=== PATIENT | female | born 1970 | race Caucasian/White ===

== ENCOUNTER 2017-06-15 16:31 | Inpatient (IN) | payer SELFPAY ==
[~2017-06-15] VITALS: Ht 172.7 cm; Wt 167.9 kg
[~2017-06-15 16:31] MED LIST: AMOXICILLIN500 M2 PO; AUGMENTIN 875 M1 TAB PO; BIAXIN500 MG PO; CLARITIN10 MG PO; FLONASE ALLERG9.9 ML NAS; LIDEX0.05% T; MEDROL DOSEPAK4 MG PO; MOTRIN800 MG PO; NAPROSYN500 MG PO; NORCO 325 MG-51 TAB PO; PREDNICOT20 MG PO; PREDNISONE10 MG PO; PROVENTIL0.09 MG/AC IH; ROBITUSSIN AC 110 ML PO; TOPAMAX100 M1 PO; ULTRAM50 MG PO
[2017-06-15 16:44] VITALS: BP 168/92
[2017-06-15 17:00] VITALS: BP 164/92
[2017-06-15 17:29] LABS: BASO % 0.5 % (0.0-1.0); EOS % 0.5 % (1.0-4.0); HEMOGLOBIN 12.8 g/dl (12.0-16.0); LYMPH # 1.3 10*3/uL (1.3-4.4); LYMPH % 15.1 % (27.0-41.0); MEAN CELL VOLUME 90.5 fl (81.0-99.0); MEAN PLATELET VOLUME 12.4 fl (9.6-12.3); MONO # 0.8 10*3/uL (0.1-1.0); MONO % 8.9 % (3.0-9.0); NEUT # 6.3 10*3/uL (2.3-7.9); NEUT % 73.2 % (47.0-73.0); PLATELET COUNT AUTOMATED 193 10*3/uL (130-400); RED BLOOD COUNT 4.42 10*6/uL (4.10-5.10); RED CELL DISTRI WIDTH 13.8 % (0-14.5); WHITE BLOOD COUNT 8.5 10*3/uL (4.8-10.8)
[2017-06-15 17:30] VITALS: BP 123/78
[2017-06-15 17:45] LABS: ALBUMIN 2.9 gm/dl (3.1-4.5); ALKALINE PHOSPHATASE 74 U/L (45-117); BUN 11 mg/dl (7-24); CHLORIDE 104 mmol/L (98-107); CREATININE 0.88 mg/dL (0.55-1.02); POTASSIUM 3.8 mmol/L (3.5-5.1); SGOT/AST 24 IU/L (3-35); SGPT/ALT 32 U/L (12-78); SODIUM 139 mmol/L (136-145); TOTAL PROTEIN 7.3 gm/dL (6.4-8.2)
[2017-06-15 17:48] LABS: TROPONIN I < 0.015 ng/ml (<0.045)
[2017-06-15 19:25] VITALS: BP 147/77
[2017-06-15 19:50] VITALS: BP 148/70
[2017-06-15 20:00] VITALS: BP 148/70
[2017-06-16] VITALS: BP 135/61
[2017-06-16 07:37] LABS: BASO % 0.1 % (0.0-1.0); HEMATOCRIT 37.2 % (37.0-47.0); HEMOGLOBIN 11.9 g/dl (12.0-16.0); LYMPH # 1.3 10*3/uL (1.3-4.4); LYMPH % 16.8 % (27.0-41.0); MEAN CELL VOLUME 91.9 fl (81.0-99.0); MEAN CORPUSCULAR HGB 29.4 pg (27.0-31.0); MEAN PLATELET VOLUME 12.5 fl (9.6-12.3); MONO # 0.5 10*3/uL (0.1-1.0); MONO % 6.8 % (3.0-9.0); NEUT # 5.7 10*3/uL (2.3-7.9); NEUT % 74.9 % (47.0-73.0); PLATELET COUNT AUTOMATED 214 10*3/uL (130-400); RED BLOOD COUNT 4.05 10*6/uL (4.10-5.10); WHITE BLOOD COUNT 7.6 10*3/uL (4.8-10.8)
[2017-06-16 08:00] VITALS: BP 139/68
[2017-06-16 08:06] LABS: ALBUMIN 2.8 gm/dl (3.1-4.5); ALKALINE PHOSPHATASE 69 U/L (45-117); BUN 12 mg/dl (7-24); CHLORIDE 104 mmol/L (98-107); FREE T4 0.93 ng/dl (0.76-1.46); PHOSPHOROUS 3.5 mg/dL (2.5-4.9); POTASSIUM 4.1 mmol/L (3.5-5.1); SGOT/AST 20 IU/L (3-35); SGPT/ALT 32 U/L (12-78); SODIUM 138 mmol/L (136-145); TRIGLYCERIDES 87 mg/dl (<150); VLDL CHOLESTEROL 17 mg/dL (6-40)
[2017-06-16 08:11] LABS: CHOLESTEROL 157 mg/dL (<200); HDL CHOLESTEROL 44 mg/dl (40-60); LDL CHOLESTEROL 96 mg/dL (9-159)
[2017-06-16 08:12] LABS: ACT PARTIAL THROMBO TIME 26.7 SECONDS (20.8-31.5)
[2017-06-16 08:52] LABS: VITAMIN D, 25-HYDROXY 12.2 ng/mL (30-100)
[2017-06-16 12:00] VITALS: BP 136/67
[2017-06-16 16:00] VITALS: BP 143/82
[2017-06-16 20:00] VITALS: BP 140/61
[2017-06-17] VITALS (7 sets, daily range): BP systolic 104–139; BP diastolic 62–83
[2017-06-17 07:19] LABS: BASO % 0.2 % (0.0-1.0); EOS % 0.1 % (1.0-4.0); HEMATOCRIT 38.7 % (37.0-47.0); HEMOGLOBIN 12.2 g/dl (12.0-16.0); LYMPH # 1.7 10*3/uL (1.3-4.4); LYMPH % 19.3 % (27.0-41.0); MEAN CORPUSCULAR HGB 29.3 pg (27.0-31.0); MEAN CORPUSCULAR HGB CONC 31.5 g/dl (33.0-37.0); MEAN PLATELET VOLUME 12.3 fl (9.6-12.3); MONO # 1.1 10*3/uL (0.1-1.0); NEUT % 67.6 % (47.0-73.0); PLATELET COUNT AUTOMATED 223 10*3/uL (130-400); RED BLOOD COUNT 4.16 10*6/uL (4.10-5.10); RED CELL DISTRI WIDTH 14.2 % (0-14.5); WHITE BLOOD COUNT 8.8 10*3/uL (4.8-10.8)
[2017-06-17 07:34] LABS: CHLORIDE 103 mmol/L (98-107); SODIUM 140 mmol/L (136-145)
[2017-06-17 07:50] LABS: BUN 16 mg/dl (7-24); CREATININE 0.98 mg/dL (0.55-1.02)
[2017-06-18] VITALS: BP 135/54
[2017-06-18 07:14] LABS: BASO % 0.1 % (0.0-1.0); HEMATOCRIT 42.4 % (37.0-47.0); HEMOGLOBIN 13.2 g/dl (12.0-16.0); LYMPH # 2.2 10*3/uL (1.3-4.4); LYMPH % 23.6 % (27.0-41.0); MEAN CORPUSCULAR HGB 28.9 pg (27.0-31.0); MEAN CORPUSCULAR HGB CONC 31.1 g/dl (33.0-37.0); MEAN PLATELET VOLUME 12.2 fl (9.6-12.3); MONO # 0.7 10*3/uL (0.1-1.0); MONO % 7.9 % (3.0-9.0); NEUT # 6.2 10*3/uL (2.3-7.9); NEUT % 67.7 % (47.0-73.0); PLATELET COUNT AUTOMATED 274 10*3/uL (130-400); RED BLOOD COUNT 4.56 10*6/uL (4.10-5.10); RED CELL DISTRI WIDTH 14.4 % (0-14.5); WHITE BLOOD COUNT 9.1 10*3/uL (4.8-10.8)
[2017-06-18 07:39] LABS: BUN 17 mg/dl (7-24); CHLORIDE 101 mmol/L (98-107); CREATININE 1.08 mg/dL (0.55-1.02); POTASSIUM 4.4 mmol/L (3.5-5.1); SODIUM 138 mmol/L (136-145)
[2017-06-18 08:00] VITALS: BP 138/74
[2017-06-18] MEDS ORDERED: TAMIFLU 75MG CA75 MG PO (08:20)
[2017-06-18] MEDS ORDERED: LISINOPRIL10 M1 PO (08:20)
[2017-06-18] MEDS ORDERED: CEPACOL SORETH1 EACH PO (08:20)
[2017-06-18] MEDS ORDERED: GLUCOPHAGE500 MG PO (08:20)
[2017-06-18] MEDS ORDERED: LEVAQUIN500 M2 PO (08:20)
[2017-06-18] MEDS ORDERED: DULE1ARO INH (08:20)
[2017-06-18] MEDS ORDERED: PREDNISONE10 MG PO (08:20)
[2017-06-18] MEDS ORDERED: VITAMIN D5000 UNI1 PO (08:20)
[2017-06-18 12:00] VITALS: BP 145/80
== END 2017-06-18 13:55 | disposition home or self-care (01) | DRG 871 ==
LOC: ED 16:31 → 4E 18:51 → EDHOLD 18:51 → 4E 18:51
PROVIDERS: Internal Medicine; Registered Nurse
DX: A41.9 Sepsis, unspecified organism (principal); J10.00 Influenza due to other identified influenza virus with unspecified type of pneumonia; E44.0 Moderate protein-calorie malnutrition; Z68.43 Body mass index [BMI] 50.0-59.9, adult; G40.909 Epilepsy, unspecified, not intractable, without status epilepticus; E11.65 Type 2 diabetes mellitus with hyperglycemia; I10 Essential (primary) hypertension; E66.9 Obesity, unspecified; E55.9 Vitamin D deficiency, unspecified; D72.810 Lymphocytopenia; J40 Bronchitis, not specified as acute or chronic; Z98.51 Tubal ligation status; Z88.8 Allergy status to other drugs, medicaments and biological substances; Z91.041 Radiographic dye allergy status

== ENCOUNTER → 2017-06-25 | Outpatient (CLI) | payer SELFPAY ==
[~2017-06-25] MED LIST changes: +CEPACOL SORETH1 EACH PO; +DULE1ARO INH; +GLUCOPHAGE500 MG PO; +LEVAQUIN500 M2 PO; +LISINOPRIL10 M1 PO; +TAMIFLU 75MG CA75 MG PO; +VITAMIN D5000 UNI1 PO
== END | disposition home or self-care (01) ==
LOC: RESCLI 01:45
DX: Z09 Encounter for follow-up examination after completed treatment for conditions other than malignant neoplasm (principal); I10 Essential (primary) hypertension; E11.65 Type 2 diabetes mellitus with hyperglycemia; E66.01 Morbid (severe) obesity due to excess calories; F32.9 Major depressive disorder, single episode, unspecified; K21.9 Gastro-esophageal reflux disease without esophagitis; E55.9 Vitamin D deficiency, unspecified; G40.909 Epilepsy, unspecified, not intractable, without status epilepticus; G43.909 Migraine, unspecified, not intractable, without status migrainosus; R00.0 Tachycardia, unspecified; J30.9 Allergic rhinitis, unspecified; Z91.041 Radiographic dye allergy status

== ENCOUNTER → 2017-07-07 | Outpatient (CLI) | payer SELFPAY | END | disposition home or self-care (01) | LOC: RESCLI 07-02 02:26 | DX: I10 Essential (primary) hypertension (principal); E11.65 Type 2 diabetes mellitus with hyperglycemia; E66.01 Morbid (severe) obesity due to excess calories; F32.9 Major depressive disorder, single episode, unspecified; K21.9 Gastro-esophageal reflux disease without esophagitis; E55.9 Vitamin D deficiency, unspecified; G40.909 Epilepsy, unspecified, not intractable, without status epilepticus; G43.909 Migraine, unspecified, not intractable, without status migrainosus; R00.0 Tachycardia, unspecified; J30.9 Allergic rhinitis, unspecified ==

== ENCOUNTER → 2017-09-22 | Outpatient (CLI) | payer SELFPAY ==
[2017-09-22 10:52] LABS: BASO # 0.1 10*3/uL (0.0-0.1); BASO % 0.6 % (0.0-1.0); EOS # 0.1 10*3/uL (0.0-0.4); EOS % 0.9 % (1.0-4.0); HEMATOCRIT 42.2 % (37.0-47.0); HEMOGLOBIN 13.2 g/dl (12.0-16.0); LYMPH # 2.2 10*3/uL (1.3-4.4); LYMPH % 24.9 % (27.0-41.0); MEAN CELL VOLUME 93.8 fl (81.0-99.0); MEAN CORPUSCULAR HGB 29.3 pg (27.0-31.0); MEAN CORPUSCULAR HGB CONC 31.3 g/dl (33.0-37.0); MEAN PLATELET VOLUME 13.8 fl (9.6-12.3); MONO # 0.6 10*3/uL (0.1-1.0); MONO % 6.4 % (3.0-9.0); NEUT # 5.8 10*3/uL (2.3-7.9); NEUT % 66.4 % (47.0-73.0); PLATELET COUNT AUTOMATED 199 10*3/uL (130-400); WHITE BLOOD COUNT 8.7 10*3/uL (4.8-10.8)
[2017-09-22 11:20] LABS: ALBUMIN 3.2 gm/dl (3.1-4.5); ALKALINE PHOSPHATASE 61 U/L (45-117); BUN 11 mg/dl (7-24); CHLORIDE 112 mmol/L (98-107); CREATININE 0.93 mg/dL (0.55-1.02); POTASSIUM 4.3 mmol/L (3.5-5.1); SGOT/AST 19 IU/L (3-35); SGPT/ALT 21 U/L (12-78); SODIUM 142 mmol/L (136-145)
== END | disposition home or self-care (01) ==
LOC: LAB 10:20
PROVIDERS: Internal Medicine
DX: Z00.01 Encounter for general adult medical examination with abnormal findings (principal); R79.89 Other specified abnormal findings of blood chemistry

== ENCOUNTER → 2017-09-30 | Outpatient (CLI) | payer SELFPAY | END | disposition home or self-care (01) | LOC: RESCLI 04:13 | DX: I10 Essential (primary) hypertension (principal); E11.65 Type 2 diabetes mellitus with hyperglycemia; F41.9 Anxiety disorder, unspecified; F32.9 Major depressive disorder, single episode, unspecified; K21.9 Gastro-esophageal reflux disease without esophagitis; E66.01 Morbid (severe) obesity due to excess calories; E55.9 Vitamin D deficiency, unspecified; G43.119 Migraine with aura, intractable, without status migrainosus; J30.9 Allergic rhinitis, unspecified; K59.00 Constipation, unspecified; R56.9 Unspecified convulsions; Z90.49 Acquired absence of other specified parts of digestive tract; Z90.89 Acquired absence of other organs ==

== ENCOUNTER → 2018-01-02 | Outpatient (CLI) | payer SELFPAY | END | disposition home or self-care (01) | LOC: RESCLI 04:00 | DX: Z12.31 Encounter for screening mammogram for malignant neoplasm of breast (principal); I10 Essential (primary) hypertension; J30.9 Allergic rhinitis, unspecified; F32.9 Major depressive disorder, single episode, unspecified; K21.9 Gastro-esophageal reflux disease without esophagitis; R56.9 Unspecified convulsions; E55.9 Vitamin D deficiency, unspecified; G43.119 Migraine with aura, intractable, without status migrainosus; F41.9 Anxiety disorder, unspecified; K59.00 Constipation, unspecified ==

== ENCOUNTER → 2018-11-03 | Outpatient (CLI) | payer SELFPAY | END | disposition home or self-care (01) | LOC: RESCLI 08:20 | DX: I10 Essential (primary) hypertension (principal); G43.119 Migraine with aura, intractable, without status migrainosus; F32.9 Major depressive disorder, single episode, unspecified; E11.65 Type 2 diabetes mellitus with hyperglycemia; E55.9 Vitamin D deficiency, unspecified; K21.9 Gastro-esophageal reflux disease without esophagitis; J30.2 Other seasonal allergic rhinitis; E66.01 Morbid (severe) obesity due to excess calories ==

== ENCOUNTER → 2019-06-29 | Outpatient (CLI) | payer SELFPAY ==
[~2019-06-29] MED LIST changes: +HYDROXYZINE HCL10 MG PO; +TOPAMAX200 MG PO; +ZOFRAN8 M1 PO; +ZOLOFT25 MG PO
== END | disposition home or self-care (01) ==
LOC: RESCLI 02:25
DX: I10 Essential (primary) hypertension (principal); G43.119 Migraine with aura, intractable, without status migrainosus; F41.9 Anxiety disorder, unspecified; E11.65 Type 2 diabetes mellitus with hyperglycemia; E55.9 Vitamin D deficiency, unspecified; K21.9 Gastro-esophageal reflux disease without esophagitis; J30.2 Other seasonal allergic rhinitis; E66.01 Morbid (severe) obesity due to excess calories; G25.81 Restless legs syndrome; Z79.899 Other long term (current) drug therapy; Z90.89 Acquired absence of other organs; Z90.49 Acquired absence of other specified parts of digestive tract

== ENCOUNTER 2019-10-27 14:33 | Inpatient (IN) | payer SELFPAY ==
[~2019-10-27] VITALS: Ht 170.2 cm; Wt 144.4 kg
[2019-10-27 14:38] VITALS: BP 153/80
[2019-10-27 15:22] LABS: BACTERIA TRACE; BILIRUBIN NEGATIVE (NEGATIVE); BLOOD NEGATIVE (NEGATIVE); CLARITY CLEAR (CLEAR); COLOR YELLOW (YELLOW); EPITHELIAL CELLS 0-2; GLUCOSE NEGATIVE (NEGATIVE); KETONE NEGATIVE (NEGATIVE); LEUKO ESTERASE NEGATIVE (NEGATIVE); MUCOUS TRACE; NITRITE NEGATIVE (NEGATIVE); PH 6.5 (5.0-9.0); RBC 0-2 rbc/hpf (0-2); SPECIFIC GRAVITY 1.005 (1.005-1.030); UROBILINOGEN 0.2 E.U./dl (0.2-1.0); WBC 0-2 wbc/hpf (0-5)
[2019-10-27 16:00] VITALS: BP 139/84
[2019-10-27 16:04] LABS: BASO % 0.3 % (0.0-1.0); EOS # 0.1 10*3/uL (0.0-0.4); EOS % 1.2 % (1.0-4.0); HEMATOCRIT 39.1 % (37.0-47.0); LYMPH # 2.5 10*3/uL (1.3-4.4); LYMPH % 26.1 % (27.0-41.0); MEAN CELL VOLUME 95.1 fl (81.0-99.0); MEAN CORPUSCULAR HGB 29.7 pg (27.0-31.0); MEAN CORPUSCULAR HGB CONC 31.2 g/dl (33.0-37.0); MEAN PLATELET VOLUME 12.5 fl (9.6-12.3); MONO # 0.7 10*3/uL (0.1-1.0); NEUT # 6.3 10*3/uL (2.3-7.9); NEUT % 65.1 % (47.0-73.0); PLATELET COUNT AUTOMATED 208 10*3/uL (130-400); RED BLOOD COUNT 4.11 10*6/uL (4.10-5.10); RED CELL DISTRI WIDTH 13.8 % (0-14.5); WHITE BLOOD COUNT 9.7 10*3/uL (4.8-10.8)
[2019-10-27 16:19] LABS: ALBUMIN 3.1 gm/dl (3.1-4.5); ALKALINE PHOSPHATASE 61 U/L (45-117); BUN 13 mg/dl (7-24); CHLORIDE 112 mmol/L (98-107); CREATININE 0.67 mg/dL (0.55-1.02); LIPASE 126 U/L (73-393); POTASSIUM 3.8 mmol/L (3.5-5.1); SGOT/AST 12 IU/L (3-35); SGPT/ALT 19 U/L (12-78); SODIUM 143 mmol/L (136-145); TOTAL PROTEIN 6.7 gm/dL (6.4-8.2)
[2019-10-27 16:20] LABS: BETA-HCG, QUANT < 1.0 mIU/mL (1-3)
[2019-10-27 19:13] VITALS: BP 132/63
[2019-10-27 21:30] VITALS: BP 139/84
[2019-10-27] MEDS ORDERED: LISINOPRIL20 MG PO (21:37)
[2019-10-27] MEDS ORDERED: ROPINIROLE HY0.25 MG PO (21:45)
[2019-10-27] MEDS ORDERED: PROTONIX40 MG PO (21:46)
[2019-10-28] VITALS: BP 128/65
[2019-10-28 06:23] LABS: BASO % 0.4 % (0.0-1.0); EOS # 0.2 10*3/uL (0.0-0.4); EOS % 1.9 % (1.0-4.0); HEMATOCRIT 35.6 % (37.0-47.0); LYMPH # 2.9 10*3/uL (1.3-4.4); LYMPH % 36.7 % (27.0-41.0); MEAN CELL VOLUME 95.4 fl (81.0-99.0); MEAN CORPUSCULAR HGB 29.5 pg (27.0-31.0); MEAN CORPUSCULAR HGB CONC 30.9 g/dl (33.0-37.0); MEAN PLATELET VOLUME 12.6 fl (9.6-12.3); MONO # 0.7 10*3/uL (0.1-1.0); MONO % 8.2 % (3.0-9.0); NEUT # 4.2 10*3/uL (2.3-7.9); NEUT % 52.4 % (47.0-73.0); PLATELET COUNT AUTOMATED 179 10*3/uL (130-400); RED BLOOD COUNT 3.73 10*6/uL (4.10-5.10)
[2019-10-28 06:41] LABS: BUN 12 mg/dl (7-24); CHLORIDE 113 mmol/L (98-107); CREATININE 0.63 mg/dL (0.55-1.02); POTASSIUM 3.5 mmol/L (3.5-5.1); SODIUM 144 mmol/L (136-145)
[2019-10-28 08:00] VITALS: BP 139/80
[2019-10-28 12:00] VITALS: BP 124/61; BP 142/75
[2019-10-28 16:00] VITALS: BP 107/58
[2019-10-28 20:00] VITALS: BP 118/69
[2019-10-29] VITALS: BP 113/57
[2019-10-29 08:00] VITALS: BP 132/67
[2019-10-29] MEDS ORDERED: PROTONIX40 MG PO (10:51)
[2019-10-29] MEDS ORDERED: Carafate1 GM PO (11:18)
[2019-10-29] MEDS ORDERED: PANTOPRAZOLE SO40 MG PO (11:18)
== END 2019-10-29 12:00 | disposition home or self-care (01) | DRG 392 ==
LOC: ED 14:33 → 4E 19:04 → EDHOLD 19:04 → 4E 19:47
PROVIDERS: Emergency Medicine; Internal Medicine; ADMIT Internal Medicine
DX: K29.70 Gastritis, unspecified, without bleeding (principal); K21.9 Gastro-esophageal reflux disease without esophagitis; D25.9 Leiomyoma of uterus, unspecified; N83.201 Unspecified ovarian cyst, right side; E87.8 Other disorders of electrolyte and fluid balance, not elsewhere classified; G40.909 Epilepsy, unspecified, not intractable, without status epilepticus; R79.82 Elevated C-reactive protein (CRP); E11.9 Type 2 diabetes mellitus without complications; I10 Essential (primary) hypertension; G43.909 Migraine, unspecified, not intractable, without status migrainosus; Z91.041 Radiographic dye allergy status; Z90.49 Acquired absence of other specified parts of digestive tract; Z82.49 Family history of ischemic heart disease and other diseases of the circulatory system; Z81.2 Family history of tobacco abuse and dependence; Z79.899 Other long term (current) drug therapy

== ENCOUNTER → 2019-11-16 | Outpatient (CLI) | payer SELFPAY ==
[~2019-11-16] MED LIST changes: +Carafate1 GM PO; +LISINOPRIL20 MG PO; +PANTOPRAZOLE SO40 MG PO; +PROTONIX40 MG PO; +ROPINIROLE HY0.25 MG PO
== END | disposition home or self-care (01) ==
LOC: RESCLI 00:29
DX: Z09 Encounter for follow-up examination after completed treatment for conditions other than malignant neoplasm (principal); G25.81 Restless legs syndrome; N83.209 Unspecified ovarian cyst, unspecified side; G40.909 Epilepsy, unspecified, not intractable, without status epilepticus; I10 Essential (primary) hypertension; E66.01 Morbid (severe) obesity due to excess calories; F32.9 Major depressive disorder, single episode, unspecified; R10.13 Epigastric pain; Z79.899 Other long term (current) drug therapy; Z79.84 Long term (current) use of oral hypoglycemic drugs; Z90.49 Acquired absence of other specified parts of digestive tract; Z91.048 Other nonmedicinal substance allergy status

== ENCOUNTER 2020-06-25 14:34 | Emergency (ER) | payer SELFPAY ==
[~2020-06-25] VITALS: Ht 170.1 cm; Wt 136.1 kg
[2020-06-25 15:38] LABS: BASO % 0.4 % (0.0-1.0); EOS # 0.1 10*3/uL (0.0-0.4); EOS % 1.4 % (1.0-4.0); HEMATOCRIT 42.7 % (37.0-47.0); LYMPH # 2.3 10*3/uL (1.3-4.4); LYMPH % 31.2 % (27.0-41.0); MEAN CELL VOLUME 91.6 fl (81.0-99.0); MEAN CORPUSCULAR HGB 29.2 pg (27.0-31.0); MEAN CORPUSCULAR HGB CONC 31.9 g/dl (33.0-37.0); MEAN PLATELET VOLUME 11.6 fl (9.6-12.3); MONO # 0.5 10*3/uL (0.1-1.0); MONO % 6.8 % (3.0-9.0); NEUT # 4.4 10*3/uL (2.3-7.9); NEUT % 59.9 % (47.0-73.0); PLATELET COUNT AUTOMATED 238 10*3/uL (130-400); RED BLOOD COUNT 4.66 10*6/uL (4.10-5.10); RED CELL DISTRI WIDTH 13.2 % (0-14.5); WHITE BLOOD COUNT 7.3 10*3/uL (4.8-10.8)
[2020-06-25 15:54] LABS: ACT PARTIAL THROMBO TIME 27.9 SECONDS (20.0-32.1)
[2020-06-25 15:59] LABS: ALBUMIN 3.2 gm/dl (3.1-4.5); ALKALINE PHOSPHATASE 64 U/L (45-117); BUN 13 mg/dl (7-24); CHLORIDE 112 mmol/L (98-107); CREATININE 0.79 mg/dL (0.55-1.02); LIPASE 73 U/L (73-393); SGOT/AST 22 IU/L (3-35); SGPT/ALT 23 U/L (12-78); SODIUM 141 mmol/L (136-145); TOTAL PROTEIN 7.1 gm/dL (6.4-8.2)
[2020-06-25 16:03] LABS: TROPONIN I < 0.015 ng/ml (<0.045)
[2020-06-25] MEDS ORDERED: ATIVAN1 MG PO (16:41)
== END 2020-06-25 17:41 | disposition home or self-care (01) ==
LOC: ED 14:34
PROVIDERS: Physician Assistant
DX: F41.0 Panic disorder [episodic paroxysmal anxiety] (principal); H53.8 Other visual disturbances; G43.909 Migraine, unspecified, not intractable, without status migrainosus; Z91.041 Radiographic dye allergy status; Z79.899 Other long term (current) drug therapy; Z96.22 Myringotomy tube(s) status; Z90.49 Acquired absence of other specified parts of digestive tract; Z90.89 Acquired absence of other organs; Z98.51 Tubal ligation status

== ENCOUNTER → 2020-07-13 | Outpatient (CLI) | payer SELFPAY ==
[~2020-07-13] MED LIST changes: +ATIVAN1 MG PO
== END | disposition home or self-care (01) ==
LOC: RESCLI 00:01
PROVIDERS: ATTEND Internal Medicine Nephrology
DX: F41.9 Anxiety disorder, unspecified (principal); I10 Essential (primary) hypertension; E55.9 Vitamin D deficiency, unspecified; F32.9 Major depressive disorder, single episode, unspecified; E11.65 Type 2 diabetes mellitus with hyperglycemia; G40.909 Epilepsy, unspecified, not intractable, without status epilepticus; J30.2 Other seasonal allergic rhinitis; G25.81 Restless legs syndrome; K21.9 Gastro-esophageal reflux disease without esophagitis; Z79.84 Long term (current) use of oral hypoglycemic drugs; Z79.899 Other long term (current) drug therapy; Z88.8 Allergy status to other drugs, medicaments and biological substances

== ENCOUNTER 2022-11-26 21:05 | Emergency (ER) | payer SELFPAY ==
[~2022-11-26] VITALS: Ht 167.6 cm; Wt 113.4 kg
== END 2022-11-26 23:34 | disposition home or self-care (01) ==
LOC: ED 21:05
DX: G43.909 Migraine, unspecified, not intractable, without status migrainosus (principal); D64.9 Anemia, unspecified; F41.9 Anxiety disorder, unspecified; Z91.041 Radiographic dye allergy status; Z90.89 Acquired absence of other organs; Z90.49 Acquired absence of other specified parts of digestive tract; Z98.890 Other specified postprocedural states; Z98.51 Tubal ligation status

== ENCOUNTER 2023-10-19 11:45 | Emergency (ER) | payer SELFPAY ==
[~2023-10-19] VITALS: Ht 172.7 cm; Wt 133.8 kg
[2023-10-19] MEDS ORDERED: Metoclopramide Hydrochloride 10 MG/2 ML AMP IV ONE (12:00)
[2023-10-19] MEDS ORDERED: ACETAMINOPHEN 325 MG TAB PO ONE (12:00)
[2023-10-19] MEDS ORDERED: Ketorolac Tromethamine 30 MG/ML VIAL IV ONE (12:00)
[2023-10-19] MEDS ORDERED: diphenhydrAMINE hydrochloride 50 MG/ML VIAL IV ONE (12:00)
[2023-10-19] MEDS ORDERED: SODIUM CHLORIDE 0.9% 1,000 ML IV ONE (12:00)
[2023-10-19] MEDS ORDERED: REGLAN10 M1 PO (13:16)
== END 2023-10-19 13:43 | disposition home or self-care (01) ==
LOC: ED 11:45
DX: G43.909 Migraine, unspecified, not intractable, without status migrainosus (principal); R11.2 Nausea with vomiting, unspecified; H53.8 Other visual disturbances; D64.9 Anemia, unspecified; F41.9 Anxiety disorder, unspecified; Z91.041 Radiographic dye allergy status; Z98.890 Other specified postprocedural states; Z90.49 Acquired absence of other specified parts of digestive tract; Z90.89 Acquired absence of other organs; Z98.51 Tubal ligation status

== ENCOUNTER 2023-12-13 13:20 | Emergency (ER) | payer SELFPAY ==
[~2023-12-13] VITALS: Ht 170.1 cm; Wt 129.3 kg
[~2023-12-13 13:20] MED LIST changes: +REGLAN10 M1 PO
[2023-12-13] MEDS ORDERED: AMOX-CLAV 875-1 EACH PO (14:03)
== END 2023-12-13 14:13 | disposition home or self-care (01) ==
LOC: ED 13:20
DX: K02.9 Dental caries, unspecified (principal); D64.9 Anemia, unspecified; F41.9 Anxiety disorder, unspecified; G43.909 Migraine, unspecified, not intractable, without status migrainosus; Z91.041 Radiographic dye allergy status; Z90.49 Acquired absence of other specified parts of digestive tract; Z90.89 Acquired absence of other organs; Z98.890 Other specified postprocedural states; Z98.51 Tubal ligation status

== ENCOUNTER 2024-01-06 20:14 | Emergency (ER) | payer SELFPAY ==
[~2024-01-06] VITALS: Ht 170.1 cm; Wt 133.8 kg
[~2024-01-06 20:14] MED LIST changes: +AMOX-CLAV 875-1 EACH PO
[2024-01-06] MEDS ORDERED: Ondansetron Hydrochloride 4 MG TAB SL ONE (20:50)
[2024-01-06] MEDS ORDERED: Ketorolac Tromethamine 60 MG/2 ML VIAL IM ONE (23:10)
== END 2024-01-06 23:24 | disposition home or self-care (01) ==
LOC: ED 20:14
DX: S06.0X0A Concussion without loss of consciousness, initial encounter (principal); S00.83XA Contusion of other part of head, initial encounter; R42 Dizziness and giddiness; Z91.041 Radiographic dye allergy status; Z79.2 Long term (current) use of antibiotics; Z96.22 Myringotomy tube(s) status; Z90.49 Acquired absence of other specified parts of digestive tract; Z90.89 Acquired absence of other organs; Z98.51 Tubal ligation status; W18.39XA Other fall on same level, initial encounter; Y93.89 Activity, other specified; Y92.89 Other specified places as the place of occurrence of the external cause; Y99.8 Other external cause status